=== PATIENT | female | born 1950 | race Caucasian/White ===

== ENCOUNTER 2022-04-12 18:41 | Inpatient (IN) | payer MEDICARE, OTHER ==
[~2022-04-12] VITALS: Ht 172.7 cm; Wt 52.2 kg
[~2022-04-12 18:41] MED LIST: PENI500T PO
--- NOTE | 2022-04-12 20:11 | NUR ---
Patient has been has been medically cleared by Dr Cosme
--- NOTE | 2022-04-12 23:10 | NUR ---
[facility] Clemencia at bedside, psych eval in progress
--- NOTE | 2022-04-13 02:30 | NUR ---
Called [facility]. Report given to OTIS Sales.
[2022-04-13] MEDS ORDERED: ACETAMINOPHEN 325 MG TABLET PO PRN (02:45)
[2022-04-13] MEDS ORDERED: ASPI81TA31 PO (02:56)
[2022-04-13] MEDS ORDERED: [UNRECOGNIZED DRUG - CODE] PO (02:56)
[2022-04-13] MEDS ORDERED: MIDO2.5T PO (02:56)
[2022-04-13] MEDS ORDERED: MAGN240P PO (02:56)
[2022-04-13] MEDS ORDERED: GLUC500T12 PO (02:56)
[2022-04-13] MEDS ORDERED: ZOLP5TAB8 PO (02:56)
[2022-04-13] MEDS ORDERED: TRAM50TA2 PO (02:56)
[2022-04-13] MEDS ORDERED: UBID100C45 PO (02:56)
[2022-04-13] MEDS ORDERED: FAMO40TA7 PO (02:56)
[2022-04-13] MEDS ORDERED: ASCO-375 PO (02:56)
[2022-04-13] MEDS ORDERED: OMEG1CAP55 PO (02:56)
[2022-04-13] MEDS ORDERED: IBUP-1953 PO (02:56)
[2022-04-13] MEDS ORDERED: CHOL200026 PO (02:56)
[2022-04-13] MEDS ORDERED: ZINC220C6 PO (02:56)
--- NOTE | 2022-04-13 03:22 | NUR ---
Pt. admitted to [facility] , under care of Dr. Willams Belongs List completed Vasu RN aware of patient's arrival
--- NOTE | 2022-04-13 04:30 | NUR ---
Admitted at approx 0315 a 72 years old female to [facility] on a 5150 for GD. per hold, patient lives alone in her own home. she initially went to [facility] d/t chronic pain. while there, she was noted with excess anxiety and worrying because of her pain. she also reported that her meds are not working and that she is not sleeping well. Patient then was referred to [facility] for psych eval and admission to [facility]. Her hold will on 04/15/22 at 2325. Upon admission, patient is A/O x 3. she is ambulatory. Patient reflects what is written on the hold. she denied SI/HI/VH/AH. she is able to CFS. patient was given her advisement as well as her booklet for patient's right when in mental health facilities. she is under the care of dr Willams. will continue to monitor.
[2022-04-13 06:05] VITALS: BP 149/49
[2022-04-13 07:30] VITALS: BP 110/57
[2022-04-13] MEDS: ESCITALOPRAM OXALATE 10 MG TABLET PO SCH (10:56)
--- NOTE | 2022-04-13 12:02 | NUR ---
Firearms Report: Hl7 Interface Developer completed and submitted a [employer] firearms report for 5150 grave disability certifications. A copy of report has been placed in patient chart.
[2022-04-13] MEDS: HYDROXYZINE PAMOATE 25 MG CAPSULE PO PRN ×2 (12:32→18:23)
--- NOTE | 2022-04-13 12:56 | NUR ---
Gps/Radiotelegraph Operator- Daughter Deven in to bring clothes and toiletries from home, instructed to bring at least 2 sets of her clothes, kept pillow (1), 1 cervical pillow for neck pain per patient. . Patient noted extremely anxious, fidgety, restless, , kept bending forward touching the floor, per daughter she is extrmely anxious right now. Per patient she is supposed to take oral abx. penicillin VK which was started 04/11/22 from dental work up . Patient requesting her ultram 50 mg po, , tylenol 650 mg offered instead for, now, Dr Rascon was called and informed the need to reconcile meds.
[2022-04-13] MEDS ORDERED: busPIRone 10 MG TABLET PO SCH (13:00)
--- NOTE | 2022-04-13 14:16 | NUR ---
Gps/Financial Services Specialist- Daughter Adran took some of patient 's belongings to home, was instructed to just leave 2 sets of clothes and basic needs
--- NOTE | 2022-04-13 15:38 | NUR ---
Gps/Seat Builder-Daughter Quinn ([phone] ) called, wants to know progress on patient's medications (pain medications and oral abx.) She also requesting the Psychiatrist as well as Medical Doctor to give her a call , Patient was able to take a nap, calm down after vistaril 25 mg po 1 cap.administered after lunch .Informed daughter Medical Doctor was already informed twice about reconcilling medications
--- NOTE | 2022-04-13 15:39 | NUR ---
LASHAUN Family Contact: LASHAUN spoke with pt's daughter, Quinn ([phone]) in person during visitation. Quinn expressed that she would like the psychiatrist to make medication changes for the pt. LASHAUN expressed that this story writer will relay the message to Dr. Willams and ask him to call her. Quinn stated pt needs stronger medication for her tooth pain and to decrease her anxiety. LASHAUN stated she will inform Dr. Willams to contact her. This story writer informed Dr. Willams to contact Quinn regarding important medication questions.
[2022-04-13 16:00] VITALS: BP 119/71
--- NOTE | 2022-04-13 16:29 | NUR ---
LASHAUN Initial Discharge Note: Pt currently resides at home alone located at [address] [place] [address] ([phone]). Per pt's daughter/DPOA, Quinn ([phone]), pt cannot return home to live on her own in this condition. Quinn agreed for pt to potentially continue care at a alf facility. LASHAUN will continue to work with pt, Quinn, and to ensure a safe and proper discharge plan.
--- NOTE | 2022-04-13 16:33 | NUR ---
Gps/Fraud Investigator- Dr Rascon (Medical Doctor) was called again was reminded to reconcile medications, was reviewed home meds with Dr Rascon bridgette. pain meds. -ultram 50 mg po q 6 hours po as needed ,as well as penicillin v 500 mg po q 6 hours which was started on , and will stop 04/17/22 . Offered to enter order for him, but he claimed he will enter the order now.
[2022-04-13] MEDS ORDERED: MIDODRINE HCL 2.5 MG TABLET PO PRN (16:45)
[2022-04-13] MEDS ORDERED: IBUPROFEN 400 MG TABLET PO PRN (16:45)
[2022-04-13] MEDS: TRAMADOL HCL 50 MG TABLET PO PRN (18:00)
--- NOTE | 2022-04-13 18:51 | NUR ---
Gps/Jig And Fixture Maker- Patient requesting to use own eye gtts which she uses ( restasis 1 gtt. each eye as needed, and artificial tears which was sent to Pharmacy this am.) Will informed Medical Doctor if ok to use .Per her friend who came to visit this pm, if patient is uncomfortable she will get anxious , and almost to panic mood.
[2022-04-13] MEDS ORDERED: GABA-532 PO (19:07)
[2022-04-13] MEDS ORDERED: GABA300C PO (19:07)
[2022-04-13] MEDS ORDERED: DEXT15DR6 EACHEYE (19:12)
[2022-04-13 20:03] VITALS: BP 141/71
--- NOTE | 2022-04-13 20:30 | NUR ---
RECEIVED PATIENT IN HER ROOM IN BED. SHE IS NOTED SLEEPING BUT EASILY AROUSABLE. SHE IS A/O X 3 ABLE TO VERBALIZED HER FEELINGS. SHE IS NOTED WITH LOW MOOD, SHE IS WITHDRAWN AND ISOLATIVE. SHE DENIED SI/HI//AH. SHE IS FIXED ON HER MEDICATIONS. SHE DENIED PAIN OR DISCOMFORT AT THIS TIME. GABAPETIN, PENCILLIN AND ARTIFICIAL EYE DROPS WERE RECONCILED PER DR Madi JOYA. WILL ADMINISTER ORDERED. HER V/S ARE STABLE. SHE IS REASSURED FOR HER SAFETY. SAFETY AND FALL PRECAUTIONS ARE IN PLACE. SHE WAS GIVEN PO FLUIDS AND SNACKS. ALL HER NEEDS ARE MET. WILL CONTINUE TO MONITOR.
[2022-04-13] MEDS: GABAPENTIN 300 MG CAPSULE PO SCH (21:25)
[2022-04-13] MEDS: PENICILLIN V POTASSIUM 500 MG TABLET PO SCH (23:40)
--- NOTE | 2022-04-13 23:46 | NUR ---
GIVEN PENICILLIN VK 500MG PO Q6HRS FOR TOOTH EXTRACTION PROPHYLACTIC. THIS IS AND ORDER THAT STARTED AT [facility] ON 04/11/22 AND TO BE CONTINUE TILL 04/17/[address] Ricardo JOYA. WILL CONTINUE TO MONITOR.
[2022-04-14] MEDS: PENICILLIN V POTASSIUM 500 MG TABLET PO SCH ×3 (06:01→18:08)
[2022-04-14 07:30] VITALS: BP 101/57
[2022-04-14] MEDS ORDERED: THEOPHYLLINE ANHYDROUS 200 MG PO SCH (09:00)
[2022-04-14] MEDS: FAMOTIDINE 20 MG TABLET PO SCH (09:00)
[2022-04-14] MEDS ORDERED: Medication Not On Formulary EA (Cholecalciferol (Vitamin D3) (Vitamin D3) 1 TAB) PO SCH (09:00)
[2022-04-14] MEDS: GABAPENTIN 100 MG CAPSULE PO SCH ×3 (09:25→18:07)
[2022-04-14] MEDS: ESCITALOPRAM OXALATE 10 MG TABLET PO SCH (09:25)
[2022-04-14] MEDS: ASPIRIN 81 MG TAB.CHEW PO SCH (09:25)
[2022-04-14] MEDS: CHOLECALCIFEROL 1,000 UNIT TABLET PO SCH (09:28)
[2022-04-14] MEDS: ASCORBIC ACID 500 MG TABLET PO SCH (09:28)
--- NOTE | 2022-04-14 09:33 | NUR ---
SW Family Contact: SW returned pt's daughter, Quinn's ([phone]) call and discussed pt's treatment, Andjas concerns and pts discharge plan. Quinn expressed her concerns about pt's food consumption. Quinn asked for this principal technical writer to speak to the medical doctor regarding pain medication questions. Quinn stated she needs this principal technical writer's help to inform the kitchen about the urgency of pt's allergy restrictions. This SW assured Quinn that pt's dietary restrictions are being followed. This SW informed pt's medical doctor, Dr. Driver to contact Quinn and Dr. Driver confirmed. This principal technical writer contacted the manager software, Iraida, Director of Behavior Health, Dr. Dave, and the Tuck Pointer, Ria. Quinn's concerns have been addressed and immediate action by Iraida and her team was taken. This principal technical writer informed Quinn and she is aware and thankful for the teams help.
[2022-04-14] MEDS: ENSURE ENLIVE (VAN) 240 ML LIQUID PO SCH ×3 (10:30→17:00)
--- NOTE | 2022-04-14 11:04 | NUR ---
Gps/Exec. Creative Director- Informed daughter Andja and friends, Knitter Wire Mesh consult was already ordered , waiting to see patient .
--- NOTE | 2022-04-14 11:59 | NUR ---
Gps/Valve And Regulator Repairer- Verbalized feelings of still anxious, claimed not feeling well ,, remains anxious, was medicated with vistaril 25 mg 1 cap. po, claimed didnt touch her
[2022-04-14] MEDS: TRAMADOL HCL 50 MG TABLET PO PRN (15:14)
[2022-04-14] MEDS: BIOTENE DRY MOUTH MOISTURIZING PO PRN ×2 (15:15→20:59)
--- NOTE | 2022-04-14 15:45 | NUR ---
Gps/Denture Technician- Noted patient resting quietly in bed, wants her lights out . Offered pain med. verbalized adequate relief after. Noted patient had been in and out of the activity room, no interactions noted . Monitored needs, daughter Andja, and friends called couple of time to check patient' progress. Patient was able to talked to her family and friends.
[2022-04-14 16:00] VITALS: BP 115/66
--- NOTE | 2022-04-14 16:10 | NUR ---
LASHAUN Family Contact: LASHAUN contacted pt's daughter, Quinn ([phone]) and informed her that this sheet writer will return to office on Sunday, and to contact the nursing station for any questions until then. Boojonna was grateful for the information.
[2022-04-14 19:38] VITALS: BP 106/53
[2022-04-14] MEDS: GABAPENTIN 300 MG CAPSULE PO SCH (20:36)
[2022-04-14] MEDS: POLYVINYL ALCOHOL OPHT DROPS 15 ML BOTTLE EACHEYE PRN (21:00)
[2022-04-14] MEDS: diphenhydrAMINE 50 MG CAPSULE PO PRN (21:42)
[2022-04-15] MEDS: PENICILLIN V POTASSIUM 500 MG TABLET PO SCH ×4 (00:09→17:00)
--- NOTE | 2022-04-15 05:11 | NUR ---
GPS NOTES: Patient is A&0x3, ambulatory w/ steady gait. C/o neck pain, ice pack applied w/ effectivity. Patient is with anxious behavior and needs constant re-assurance. She is compliant with medications. PRN Benadryl given. Patient slept well during shift. No distress noted. Safety strategies in placed.
[2022-04-15 07:41] VITALS: BP 96/49
[2022-04-15] MEDS: ESCITALOPRAM OXALATE 10 MG TABLET PO SCH (08:52)
[2022-04-15] MEDS: ASCORBIC ACID 500 MG TABLET PO SCH (08:52)
[2022-04-15] MEDS: CHOLECALCIFEROL 1,000 UNIT TABLET PO SCH (08:52)
[2022-04-15] MEDS: GABAPENTIN 100 MG CAPSULE PO SCH ×3 (08:52→16:08)
[2022-04-15] MEDS: ASPIRIN 81 MG TAB.CHEW PO SCH (08:52)
[2022-04-15] MEDS: FAMOTIDINE 20 MG TABLET PO SCH (09:00)
[2022-04-15] MEDS: ENSURE ENLIVE (VAN) 240 ML LIQUID PO SCH ×3 (09:00→16:08)
--- NOTE | 2022-04-15 09:37 | NUR ---
Pt received lying in bed resting comfortably. Compliant with most PO medications. Pt is anxious at times and easily irritable. Complaining about food specifics. Prune Washer called kitchen to accommodate pt's requests. Denies SI. No aggressive or combative behavior noted.
[2022-04-15] MEDS: TRAMADOL HCL 50 MG TABLET PO PRN (13:25)
[2022-04-15] MEDS: LORAZEPAM 1 MG TABLET PO PRN (13:25)
[2022-04-15 16:15] VITALS: BP 123/69
[2022-04-15] MEDS: MAG HYDROX/AL HYDROX/SIMETH 30 ML LIQUID UDC PO PRN (16:21)
[2022-04-15 19:52] VITALS: BP 118/66
[2022-04-15] MEDS: GABAPENTIN 300 MG CAPSULE PO SCH (21:11)
[2022-04-15] MEDS: diphenhydrAMINE 50 MG CAPSULE PO PRN (21:11)
[2022-04-15] MEDS: BIOTENE DRY MOUTH MOISTURIZING PO PRN (21:15)
[2022-04-16] MEDS: PENICILLIN V POTASSIUM 500 MG TABLET PO SCH ×5 (00:05→23:46)
[2022-04-16] MEDS: LORAZEPAM 1 MG TABLET PO PRN ×2 (00:06→11:53)
[2022-04-16] MEDS: FAMOTIDINE 20 MG TABLET PO SCH (06:39)
[2022-04-16 07:40] VITALS: BP 112/60
[2022-04-16] MEDS: ENSURE ENLIVE (VAN) 240 ML LIQUID PO SCH ×3 (09:00→17:00)
[2022-04-16] MEDS: ASPIRIN 81 MG TAB.CHEW PO SCH (09:18)
[2022-04-16] MEDS: ESCITALOPRAM OXALATE 10 MG TABLET PO SCH (09:18)
[2022-04-16] MEDS: GABAPENTIN 100 MG CAPSULE PO SCH ×3 (09:19→17:14)
[2022-04-16] MEDS: ASCORBIC ACID 500 MG TABLET PO SCH (09:19)
[2022-04-16] MEDS: CHOLECALCIFEROL 1,000 UNIT TABLET PO SCH (09:19)
[2022-04-16] MEDS: MAG HYDROX/AL HYDROX/SIMETH 30 ML LIQUID UDC PO PRN (11:53)
--- NOTE | 2022-04-16 14:20 | NUR ---
Patient has been on and off complaining about things , then complimenting. Patient refuses to continue on the antibiotics for her tooth because " I have been taking them for too many days". The patient wants to take a break from her afternoon medications d/t having an upset stomach. The patient has been anxious most of the day so far. This lead technical writer was able to engage in meaningful conversation and educated the patient on different coping styles to try. Safety Stratiges remain in place. No acute pain or distress noted at this time.
[2022-04-16 16:30] VITALS: BP 100/48
[2022-04-16] MEDS: TRAMADOL HCL 50 MG TABLET PO PRN ×2 (17:18→18:58)
[2022-04-16 19:46] VITALS: BP 119/67
[2022-04-16] MEDS: GABAPENTIN 300 MG CAPSULE PO SCH (20:29)
[2022-04-16] MEDS: POLYVINYL ALCOHOL OPHT DROPS 15 ML BOTTLE EACHEYE PRN (20:42)
[2022-04-16] MEDS: BIOTENE DRY MOUTH MOISTURIZING PO PRN (20:42)
[2022-04-16] MEDS: diphenhydrAMINE 50 MG CAPSULE PO PRN (20:49)
[2022-04-17] MEDS: PENICILLIN V POTASSIUM 500 MG TABLET PO SCH ×3 (06:08→17:23)
[2022-04-17 07:37] VITALS: BP 98/55
[2022-04-17] MEDS ORDERED: GABAPENTIN 100 MG CAPSULE PO SCH (08:30)
[2022-04-17] MEDS: ASPIRIN 81 MG TAB.CHEW PO SCH (08:41)
[2022-04-17] MEDS: ASCORBIC ACID 500 MG TABLET PO SCH (08:42)
[2022-04-17] MEDS: FAMOTIDINE 20 MG TABLET PO SCH (08:42)
[2022-04-17] MEDS: CHOLECALCIFEROL 1,000 UNIT TABLET PO SCH (08:42)
[2022-04-17] MEDS: ESCITALOPRAM OXALATE 10 MG TABLET PO SCH (08:43)
[2022-04-17] MEDS: ENSURE ENLIVE (VAN) 240 ML LIQUID PO SCH ×3 (09:00→17:01)
[2022-04-17] MEDS: GABAPENTIN 300 MG CAPSULE PO SCH ×3 (09:00→20:41)
[2022-04-17] MEDS: LORAZEPAM 1 MG TABLET PO PRN (11:02)
--- NOTE | 2022-04-17 11:02 | NUR ---
Patient C/O feelings of still anxious, claimed not feeling well remains anxious, Ativan 1 mg given as prn ordered. patient remains isolative withdrawn no interaction with other peers .refused to attend i group activity.
[2022-04-17 16:22] VITALS: BP 95/54
[2022-04-17] MEDS: TRAMADOL HCL 50 MG TABLET PO PRN (17:00)
[2022-04-17 19:28] VITALS: BP 102/43
[2022-04-17] MEDS: MELATONIN 3 MG TABLET PO SCH (20:41)
[2022-04-17] MEDS: MAGNESIUM HYDROXIDE 30 ML LIQUID UDC PO PRN (20:41)
[2022-04-17] MEDS: POLYVINYL ALCOHOL OPHT DROPS 15 ML BOTTLE EACHEYE PRN (20:42)
[2022-04-17] MEDS: BIOTENE DRY MOUTH MOISTURIZING PO PRN (20:42)
[2022-04-17] MEDS ORDERED: MELATONIN 3 MG TABLET PO SCH (21:00)
[2022-04-18] MEDS: LORAZEPAM 1 MG TABLET PO PRN ×2 (03:26→17:58)
--- NOTE | 2022-04-18 04:08 | NUR ---
Patient staying mostly in her room, comes out to engage interaction with the staff to make simple requests. Verbalizing more feeling with this script writer about her anxiety and how she is battling with them. Acknowledging her feelings at this time. She remains compliant with her treatment plans. MOM given d/t no BM. Ativan given for anxiety. Patient sleeping intermittently during shift. Close monitoring observed.
[2022-04-18 07:30] VITALS: BP 105/52
[2022-04-18] MEDS: ASCORBIC ACID 500 MG TABLET PO SCH (08:32)
[2022-04-18] MEDS: ESCITALOPRAM OXALATE 10 MG TABLET PO SCH (08:32)
[2022-04-18] MEDS: ASPIRIN 81 MG TAB.CHEW PO SCH (08:32)
[2022-04-18] MEDS: FAMOTIDINE 20 MG TABLET PO SCH (08:32)
[2022-04-18] MEDS: GABAPENTIN 300 MG CAPSULE PO SCH ×3 (08:32→20:43)
[2022-04-18] MEDS: CHOLECALCIFEROL 1,000 UNIT TABLET PO SCH (08:32)
[2022-04-18] MEDS: ENSURE ENLIVE (VAN) 240 ML LIQUID PO SCH ×3 (08:33→16:26)
--- NOTE | 2022-04-18 10:01 | NUR ---
LASHAUN Family Contact: LASHAUN contacted pt's daughter, Quinn ([phone]) and discussed pt's discharge plan. Quinn expressed she is agreeable to a assisted facility recommendation for pt's continuation of care. LASHAUN stated she will follow-up with the MD for referrals and discuss with Quinn prior to discharge. Quinn also expressed medication adjustments she would like to speak to Dr. Antonio about regarding senior living care. LASHAUN informed Dr. Willams and will continue to follow-up with Quinn.
--- NOTE | 2022-04-18 12:16 | NUR ---
LASHAUN Family Contact: SW spoke with pt's brother in person during visitation and the pt regarding pt's treatment and discharge plan. Family did not have any questions or concerns at this time.
--- NOTE | 2022-04-18 14:29 | NUR ---
patient is alert ambulate in her room and hallway ,still feels Nervous and anxious time to time, patient refused to take Ativan she state that' i will try no depend on medication for anxiety ,i will try to getting better by my self. patient is more talkative and brighter compliant with all schedule medication .refused to attend in group activity 1 to 1 activity provided by REC.therapist.encouraged patient to verbalizer her feeling will continue close monitoring.
[2022-04-18 16:00] VITALS: BP 112/50
[2022-04-18] MEDS: TRAMADOL HCL 50 MG TABLET PO PRN (16:59)
[2022-04-18 19:38] VITALS: BP 116/57
[2022-04-18] MEDS: diphenhydrAMINE 50 MG CAPSULE PO PRN (20:42)
[2022-04-18] MEDS: MELATONIN 3 MG TABLET PO SCH (20:43)
[2022-04-19 07:30] VITALS: BP 123/67
[2022-04-19] MEDS: ASPIRIN 81 MG TAB.CHEW PO SCH (08:31)
[2022-04-19] MEDS: CHOLECALCIFEROL 1,000 UNIT TABLET PO SCH (08:31)
[2022-04-19] MEDS: GABAPENTIN 300 MG CAPSULE PO SCH ×3 (08:31→20:21)
[2022-04-19] MEDS: FAMOTIDINE 20 MG TABLET PO SCH (08:32)
[2022-04-19] MEDS: ASCORBIC ACID 500 MG TABLET PO SCH (08:32)
[2022-04-19] MEDS: ESCITALOPRAM OXALATE 10 MG TABLET PO SCH (08:32)
[2022-04-19] MEDS: ENSURE ENLIVE (VAN) 240 ML LIQUID PO SCH ×2 (08:57→12:15)
[2022-04-19] MEDS: LORAZEPAM 1 MG TABLET PO PRN (10:18)
--- NOTE | 2022-04-19 12:18 | NUR ---
LASHAUN Family contact: LASHAUN spoke with pt's brother, son, and pt in person during visitation. Pt stated her concerns with her breakfast and lunch meals. pt stated her anxiety does feel improved. Pt's family did not have any questions or concerns for this health underwriter at this time. Pt's concerns for her meals were addressed.
[2022-04-19 16:00] VITALS: BP 121/57
[2022-04-19] MEDS: TRAMADOL HCL 50 MG TABLET PO PRN (16:09)
[2022-04-19] MEDS: MAGNESIUM HYDROXIDE 30 ML LIQUID UDC PO PRN (19:10)
[2022-04-19 19:46] VITALS: BP 144/72
[2022-04-19] MEDS: MELATONIN 3 MG TABLET PO SCH (20:21)
[2022-04-19] MEDS: BIOTENE DRY MOUTH MOISTURIZING PO PRN (20:22)
[2022-04-19] MEDS: diphenhydrAMINE 50 MG CAPSULE PO PRN (20:30)
[2022-04-20] MEDS: LORAZEPAM 1 MG TABLET PO PRN ×2 (02:45→21:03)
--- NOTE | 2022-04-20 03:17 | NUR ---
Received in her room, patient calm and cooperative with care and medication, patient slept for few hours then awake. Patient has episodes anxiety requested something for it, given ativan 1mg po, cont to monitor.
[2022-04-20 06:58] LABS: HEMATOCRIT 38.9 % (31.2-41.9); MEAN CORPUSCULAR HEMOGLOBIN 31.2 uug (24.7-32.8); MEAN CORPUSCULAR VOLUME 90.9 fL (75.5-95.3); PLATELET COUNT (AUTO) 236 K/uL (179-408)
[2022-04-20 07:24] LABS: THYROID STIMULATING HORMONE 0.965 mIU/mL (0.358-3.740)
[2022-04-20 07:30] VITALS: BP 116/70
[2022-04-20 08:24] LABS: BILIRUBIN,TOTAL 0.3 mg/dL (0.2-1.0); CREATININE 0.9 mg/dL (0.6-1.3); MAGNESIUM 2.2 mg/dL (1.8-2.4); PHOSPHOROUS 3.6 mg/dL (2.5-4.9); POTASSIUM 4.1 mmol/L (3.5-5.1); TOTAL PROTEIN, SERUM 5.8 g/dL (6.4-8.2)
[2022-04-20] MEDS: ASPIRIN 81 MG TAB.CHEW PO SCH (09:05)
[2022-04-20] MEDS: CHOLECALCIFEROL 1,000 UNIT TABLET PO SCH (09:06)
[2022-04-20] MEDS: ASCORBIC ACID 500 MG TABLET PO SCH (09:06)
[2022-04-20] MEDS: GABAPENTIN 300 MG CAPSULE PO SCH ×3 (09:07→21:05)
[2022-04-20] MEDS: FAMOTIDINE 20 MG TABLET PO SCH (09:07)
[2022-04-20] MEDS: ESCITALOPRAM OXALATE 10 MG TABLET PO SCH (09:11)
[2022-04-20] MEDS: ENSURE ENLIVE (VAN) 240 ML LIQUID PO SCH (09:12)
--- NOTE | 2022-04-20 12:10 | NUR ---
LASHAUN Family Contact: SW spoke with pt's brother and pt in person. Pt verbalized she needs protein for lunch as she is not able to eat her vegetables due to her TMJ pain. SW informed Dietary and pt was immediately brought her requested meal.
[2022-04-20] MEDS: TRAMADOL HCL 50 MG TABLET PO PRN ×2 (14:24→23:16)
--- NOTE | 2022-04-20 14:35 | NUR ---
patient is alert ambulate in her room and hallway , patient compliant taken all schedule medication . attended activities 1 to 1 activity provided by REC.therapist. Medicated for C/O of neck pain as order with Ultram 50 mg will continue to monitor closely.
[2022-04-20 16:00] VITALS: BP 119/68
[2022-04-20 20:04] VITALS: BP 102/66
[2022-04-20] MEDS: MELATONIN 3 MG TABLET PO SCH (21:04)
[2022-04-20] MEDS: ZOLPIDEM 5 MG TABLET PO PRN (23:16)
--- NOTE | 2022-04-21 01:50 | NUR ---
Received patient in her room. Anxious and worried about her medications. This health underwriter talked with her about stress coping techniques ,and meditation, different breathing styles to help calm the mind. The patient was open to these things and returned demonstration. Reassurance and active listening done by this health underwriter. The patient ruminates on everything that has gone wrong in her past . She fixates on negativity, but can be redirected and distracted for short periods of time. The patient took a shower and ate snack. PRN medications were provided to help patient sleep per patient request. Safety Stratiges are in place. Continuing to monitor patient for anxiety and insomnia. No SI at this time.
[2022-04-21 07:30] VITALS: BP 125/68
[2022-04-21] MEDS: FAMOTIDINE 20 MG TABLET PO SCH (08:45)
[2022-04-21] MEDS: CHOLECALCIFEROL 1,000 UNIT TABLET PO SCH (08:45)
[2022-04-21] MEDS: ASPIRIN 81 MG TAB.CHEW PO SCH (08:46)
[2022-04-21] MEDS: ASCORBIC ACID 500 MG TABLET PO SCH (08:46)
[2022-04-21] MEDS: ESCITALOPRAM OXALATE 10 MG TABLET PO SCH (08:46)
[2022-04-21] MEDS: GABAPENTIN 300 MG CAPSULE PO SCH ×3 (08:46→21:59)
[2022-04-21] MEDS: ENSURE ENLIVE (VAN) 240 ML LIQUID PO SCH (08:46)
[2022-04-21] MEDS: LORAZEPAM 1 MG TABLET PO PRN (13:23)
[2022-04-21] MEDS: TRAMADOL HCL 50 MG TABLET PO PRN ×2 (13:24→14:58)
--- NOTE | 2022-04-21 13:26 | NUR ---
Patient is given Ativan 1 mg for anxiety, restlessness. Patient is given Tramadol 50 mg for jaw, neck, and head pain rated 9 on the scale of 1 to 10, will be monitored for effectiveness.
--- NOTE | 2022-04-21 13:52 | NUR ---
Received patient sleeping in her room. Patient is anxious and restless at times, isolative, cooperative with nursing care, compliant with medications. Patient is A/O X 3 to person, place. Emotional support provided. Fall and safety precautions implemented.
[2022-04-21 16:00] VITALS: BP 129/67
--- NOTE | 2022-04-21 20:30 | NUR ---
Received patient in her room in bed. She was noted awake A/O x 3 able to verbalized her feeling. Patient noted isolative and withdrawn. She is less anxious. She is fixed on her medications and worry about her night time sleep. Patient was educated about her medications and PRNs. she was reassured. she was also reassured for her safety. safety and fall precautions are in place. her V/S are stable. she was given PO fluids and snacks. will continue to monitor.
[2022-04-21] MEDS: MAGNESIUM HYDROXIDE 30 ML LIQUID UDC PO PRN (20:57)
[2022-04-21 21:31] VITALS: BP 127/68
[2022-04-21] MEDS: MELATONIN 3 MG TABLET PO SCH (21:59)
[2022-04-21] MEDS: BIOTENE DRY MOUTH MOISTURIZING PO PRN (22:40)
[2022-04-22] MEDS: ZOLPIDEM 5 MG TABLET PO PRN (01:32)
[2022-04-22 07:35] VITALS: BP 109/61
[2022-04-22] MEDS: FAMOTIDINE 20 MG TABLET PO SCH (08:18)
[2022-04-22] MEDS: ASPIRIN 81 MG TAB.CHEW PO SCH (08:18)
[2022-04-22] MEDS: ESCITALOPRAM OXALATE 10 MG TABLET PO SCH (08:18)
[2022-04-22] MEDS: CHOLECALCIFEROL 1,000 UNIT TABLET PO SCH (08:18)
[2022-04-22] MEDS: ENSURE ENLIVE (VAN) 240 ML LIQUID PO SCH (08:19)
[2022-04-22] MEDS: GABAPENTIN 300 MG CAPSULE PO SCH ×3 (08:19→21:26)
[2022-04-22] MEDS: ASCORBIC ACID 500 MG TABLET PO SCH (08:19)
[2022-04-22] MEDS: LORAZEPAM 1 MG TABLET PO PRN (09:42)
[2022-04-22] MEDS: TRAMADOL HCL 50 MG TABLET PO PRN (14:47)
--- NOTE | 2022-04-22 15:26 | NUR ---
Received patient sleeping in her room. Patient is A/O X 3 to person, place. Patient is isolative, withdrawn, depressed, cooperative, compliant with medications. Patient is given Ativan 1 mg at 09:42 for anxiety, effective. Patient is given Tramadol 50 mg at 14:47 for jaw, neck, head pain, effective. Requires minimal assistance with ADL. Emotional support provided. Fall and safety precautions implemented.
[2022-04-22 16:22] VITALS: BP 134/62
--- NOTE | 2022-04-22 20:30 | NUR ---
Received patient in her room in bed. She was noted awake A/O x 3 able to verbalized her feeling. Patient noted isolative and withdrawn. She is anxious and fixed on her medications and worry about her night time sleep, she stated, "I am worry about my sleep. I need to sleep tonight, I got to sleep tonigh".Patient was educated about her medications and PRNs. she was reassured and redirected. she was also reassured for her safety. safety and fall precautions are in place. her V/S are stable. she was given PO fluids and snacks. will continue to monitor.
[2022-04-22 20:57] VITALS: BP 96/55
[2022-04-22] MEDS: MELATONIN 3 MG TABLET PO SCH (21:26)
[2022-04-23] MEDS: ZOLPIDEM 5 MG TABLET PO PRN (00:27)
[2022-04-23] MEDS: LORAZEPAM 1 MG TABLET PO PRN ×2 (01:32→14:21)
[2022-04-23 07:50] VITALS: BP 94/60
[2022-04-23] MEDS: FAMOTIDINE 20 MG TABLET PO SCH (08:29)
[2022-04-23] MEDS: ASPIRIN 81 MG TAB.CHEW PO SCH (08:30)
[2022-04-23] MEDS: CHOLECALCIFEROL 1,000 UNIT TABLET PO SCH (08:30)
[2022-04-23] MEDS: ESCITALOPRAM OXALATE 10 MG TABLET PO SCH (08:30)
[2022-04-23] MEDS: GABAPENTIN 300 MG CAPSULE PO SCH ×4 (08:30→21:51)
[2022-04-23] MEDS: ASCORBIC ACID 500 MG TABLET PO SCH (08:30)
[2022-04-23] MEDS: ENSURE ENLIVE (VAN) 240 ML LIQUID PO SCH (08:31)
[2022-04-23] MEDS: MAG HYDROX/AL HYDROX/SIMETH 30 ML LIQUID UDC PO PRN (10:19)
--- NOTE | 2022-04-23 14:28 | NUR ---
Received patient sleeping in her room. Patient is A/O X 3 to person, place, situation. Patient is depressed, isolative, confinding in her room in the darkness with lights off, participates in group meditation only, Maalox 30 ml is given at 10:19 for upset stomach, effective. Ativan 1 mg is given at 14:21 for anxiety, will be monitored for effectiveness. Patient is ambulatory, self care. Active listening provided. Fall and safety precautions implemented.
[2022-04-23 16:14] VITALS: BP 116/58
[2022-04-23] MEDS: TRAMADOL HCL 50 MG TABLET PO PRN (16:41)
--- NOTE | 2022-04-23 20:30 | NUR ---
Received patient in the shower. She was helped out of the shower bed sheet were changed. She is noted A/O x 3 calm and pleasant. She is able to verbalized her feelings. Patient noted less anxious less isolative than yesterday but continue fixed on medications and side effect. she stated, "The doctor gave me Benadryl at night for sleep but what are the side effect? I don't want to take too many medication because i get very sick from the side effects". patient was informed of Benadryl side effect and will take it later. She is reassured for her safety safety and fall precautions are in place. V/S stable. she was given PO fluids and snacks. Will continue to monitor.
[2022-04-23 21:41] VITALS: BP 123/67
[2022-04-23] MEDS: MELATONIN 3 MG TABLET PO SCH (21:51)
[2022-04-23] MEDS: diphenhydrAMINE 50 MG CAPSULE PO SCH (21:51)
[2022-04-24] MEDS: BIOTENE DRY MOUTH MOISTURIZING PO PRN (01:29)
[2022-04-24] MEDS: ZOLPIDEM 5 MG TABLET PO PRN (02:23)
[2022-04-24 07:42] VITALS: BP 125/68
[2022-04-24] MEDS: ASPIRIN 81 MG TAB.CHEW PO SCH (08:52)
[2022-04-24] MEDS: FAMOTIDINE 20 MG TABLET PO SCH (08:52)
[2022-04-24] MEDS: ESCITALOPRAM OXALATE 10 MG TABLET PO SCH (08:53)
[2022-04-24] MEDS: GABAPENTIN 300 MG CAPSULE PO SCH ×4 (08:53→20:44)
[2022-04-24] MEDS: ASCORBIC ACID 500 MG TABLET PO SCH (08:53)
[2022-04-24] MEDS: CHOLECALCIFEROL 1,000 UNIT TABLET PO SCH (08:54)
[2022-04-24] MEDS: ENSURE ENLIVE (VAN) 240 ML LIQUID PO SCH (09:00)
[2022-04-24] MEDS: LORAZEPAM 1 MG TABLET PO PRN ×2 (10:22→20:44)
--- NOTE | 2022-04-24 14:42 | NUR ---
Received patient lying in bed resting comfortably. Compliant with all PO medications. Pt is anxious at times and easily irritable asked Ativan for anxiety , patient still feels hopeless and helpless Denies SI. No aggressive or combative behavior noted.visited by her family .
[2022-04-24 15:54] VITALS: BP 89/52
[2022-04-24] MEDS: TRAMADOL HCL 50 MG TABLET PO PRN (16:26)
[2022-04-24] MEDS: diphenhydrAMINE 50 MG CAPSULE PO SCH (20:44)
[2022-04-24] MEDS: MELATONIN 3 MG TABLET PO SCH (20:45)
[2022-04-24 20:51] VITALS: BP 105/75
--- NOTE | 2022-04-25 01:51 | NUR ---
Patient was walking up and down the hallway at the start of the shift. Depressed and in a hopeless mood. This pattern chart writer engaged in a long conversation with the patient. The patient has poor coping skills and continues to ruminate on the past. Many attempts to educate the patient with coping and stress relieving techniques and breathing exercises. The patient is open to trying but verbalizes and fixates and all that is wrong with her or bad in the world. Multiple times this patient has asked for this writers phone number stating " I need you in my life. You need to keep in touch with me when I am discharged. You are the only one around here that can help me. " The patient acts needy and dependant on this pattern chart writer. Despite being told that staff giving their phone number out to patients is inappropriate, the patient continues to ask. Safety stratiges are in place and ongoing monitoring of the patients depression.
[2022-04-25 07:38] VITALS: BP 114/60
[2022-04-25] MEDS ORDERED: ZOLPIDEM 5 MG TABLET PO PRN (08:30)
[2022-04-25] MEDS: GABAPENTIN 300 MG CAPSULE PO SCH ×4 (08:37→20:25)
[2022-04-25] MEDS: ASCORBIC ACID 500 MG TABLET PO SCH (08:37)
[2022-04-25] MEDS: FAMOTIDINE 20 MG TABLET PO SCH (08:37)
[2022-04-25] MEDS: CHOLECALCIFEROL 1,000 UNIT TABLET PO SCH (08:37)
[2022-04-25] MEDS: ESCITALOPRAM OXALATE 10 MG TABLET PO SCH (08:37)
[2022-04-25] MEDS: ASPIRIN 81 MG TAB.CHEW PO SCH (08:37)
[2022-04-25] MEDS: ENSURE ENLIVE (VAN) 240 ML LIQUID PO SCH (08:39)
[2022-04-25] MEDS: LORAZEPAM 1 MG TABLET PO PRN ×2 (10:49→22:33)
--- NOTE | 2022-04-25 11:00 | NUR ---
LASHAUN Family Contact: LASHAUN spoke with pt's daughter, Quinn ([phone]) and stated that she would like Dr. Willams's recommendation for local snf placement. Quinn also stated she would like her mother to be referred for PT and OT fro insurance to cover. LASHAUN stated she will relay the message to the MD. Boojonna stated she is very grateful for the help.
[2022-04-25] MEDS: TRAMADOL HCL 50 MG TABLET PO PRN (15:02)
[2022-04-25 15:09] VITALS: BP 101/63
[2022-04-25 19:52] VITALS: BP 95/65
[2022-04-25] MEDS: diphenhydrAMINE 50 MG CAPSULE PO SCH (20:25)
[2022-04-25] MEDS: MELATONIN 3 MG TABLET PO SCH (20:25)
[2022-04-25] MEDS: MAGNESIUM HYDROXIDE 30 ML LIQUID UDC PO PRN (21:01)
[2022-04-26 07:30] VITALS: BP 114/60
[2022-04-26] MEDS: ESCITALOPRAM OXALATE 10 MG TABLET PO SCH (08:51)
[2022-04-26] MEDS: FAMOTIDINE 20 MG TABLET PO SCH (08:51)
[2022-04-26] MEDS: ASPIRIN 81 MG TAB.CHEW PO SCH (08:51)
[2022-04-26] MEDS: CHOLECALCIFEROL 1,000 UNIT TABLET PO SCH (08:51)
[2022-04-26] MEDS: ASCORBIC ACID 500 MG TABLET PO SCH (08:51)
[2022-04-26] MEDS: GABAPENTIN 300 MG CAPSULE PO SCH ×4 (08:51→21:12)
[2022-04-26] MEDS: ENSURE ENLIVE (VAN) 240 ML LIQUID PO SCH (08:52)
--- NOTE | 2022-04-26 10:14 | NUR ---
LASHAUN Family Contact/DPOA: LASHAUN spoke with pt's daughter, Quinn ([phone]) and discussed pt's acceptance to [facility] upon discharge. LASHAUN provided details for the recommended snf by the psychiatrist per Quinn's request. Quinn stated to this business writer that pt may discharge home under the pt's brothers care or to a jail facility. The decision remains in process per Joel. LASHAUN stated this business writer will inform Dr. Willams and discuss a final plan once a discharge date is set. Quinn is aware and agreeable.
[2022-04-26 16:00] VITALS: BP 114/59
[2022-04-26] MEDS: TRAMADOL HCL 50 MG TABLET PO PRN (16:03)
--- NOTE | 2022-04-26 16:19 | NUR ---
LASHAUN Family Contact/DPOA: LASHAUN spoke with pt's daughter, Quinn ([phone]) and stated that pt's anticipated discharge date is Sunday or Sunday per Dr. Willams. LASHAUN stated to follow-up with this data analyst report writer tomorrow or Sunday to confirm a safe plan for the pt prior to discharge next week. Quinn is aware and agreeable.
--- NOTE | 2022-04-26 17:35 | NUR ---
Received patient sleeping in her room. Patient is isolative, cooperative with nursing care, compliant with medications. Patient is A/O X 3 to person, place. Tramadol 50 mg given at 16:03 for jaw pain, rated 10 on the scale of 10, effective. Emotional support provided. Fall and safety precautions implemented.
[2022-04-26 20:01] VITALS: BP 115/52
[2022-04-26] MEDS: diphenhydrAMINE 50 MG CAPSULE PO SCH (21:11)
[2022-04-26] MEDS: MELATONIN 3 MG TABLET PO SCH (21:11)
[2022-04-26] MEDS: LORAZEPAM 1 MG TABLET PO PRN (21:57)
--- NOTE | 2022-04-27 03:27 | NUR ---
GPS NOTES: Patient remains A&0x3, ambulatory and able to care for self. Still exhibiting anxious behavior as evidence by constant asking for re-assurance. Patient is able to make her needs known. She is quiet, calm and pleasant towards staff and peers. She is med compliant. All her needs are met and attended. Close monitoring observed, all safety strategies in placed.
[2022-04-27 07:30] VITALS: BP 113/62
[2022-04-27] MEDS: ESCITALOPRAM OXALATE 10 MG TABLET PO SCH (08:39)
[2022-04-27] MEDS: ASPIRIN 81 MG TAB.CHEW PO SCH (08:39)
[2022-04-27] MEDS: GABAPENTIN 300 MG CAPSULE PO SCH ×4 (08:39→21:07)
[2022-04-27] MEDS: ASCORBIC ACID 500 MG TABLET PO SCH (08:39)
[2022-04-27] MEDS: FAMOTIDINE 20 MG TABLET PO SCH (08:39)
[2022-04-27] MEDS: CHOLECALCIFEROL 1,000 UNIT TABLET PO SCH (08:39)
[2022-04-27] MEDS: ENSURE ENLIVE (VAN) 240 ML LIQUID PO SCH (08:40)
[2022-04-27] MEDS: LORAZEPAM 1 MG TABLET PO PRN ×2 (12:49→21:06)
--- NOTE | 2022-04-27 15:21 | NUR ---
Received patient sleeping in her room. Pt. is A/O X 3 to person, place, situation. Patient is calm, cooperative, isolative most of the time, depressed. Patient is given Ativan 1 mg at 12:49 for anxiety, effective. Patient requires minimal assistance with ADL. Patient is medication compliant. Emotional support provided. Fall and safety precautions implemented.
[2022-04-27 16:00] VITALS: BP 123/66
[2022-04-27 20:06] VITALS: BP 140/68
[2022-04-27] MEDS: MAGNESIUM HYDROXIDE 30 ML LIQUID UDC PO PRN (20:36)
[2022-04-27] MEDS: diphenhydrAMINE 50 MG CAPSULE PO SCH (21:07)
[2022-04-27] MEDS: MELATONIN 3 MG TABLET PO SCH (21:07)
--- NOTE | 2022-04-28 05:53 | NUR ---
GPS: SHIFT NOTE:RECEIVED PT ALERT AND STANDING AT NURSES STATION CALM AND COOPERATIVE. PT REQUESTED ATIVAN FOR SLEEP INSTEAD OF AMBIEN TO BE GIVEN AT 2145. PT IS INDEPENDENT WITH ADL. EMOTIONAL PROVIDED PRN. PT HAD NO ADVERSE REACTION FROM MEDICATION TAKEN DURING THE SHIFT.
[2022-04-28 07:30] VITALS: BP 111/56
[2022-04-28] MEDS: ESCITALOPRAM OXALATE 10 MG TABLET PO SCH (08:19)
[2022-04-28] MEDS: ASPIRIN 81 MG TAB.CHEW PO SCH (08:19)
[2022-04-28] MEDS: ENSURE ENLIVE (VAN) 240 ML LIQUID PO SCH (08:19)
[2022-04-28] MEDS: FAMOTIDINE 20 MG TABLET PO SCH (08:20)
[2022-04-28] MEDS: GABAPENTIN 300 MG CAPSULE PO SCH ×2 (08:20→12:11)
[2022-04-28] MEDS: CHOLECALCIFEROL 1,000 UNIT TABLET PO SCH (08:20)
[2022-04-28] MEDS: ASCORBIC ACID 500 MG TABLET PO SCH (08:20)
--- NOTE | 2022-04-28 10:05 | NUR ---
LASHAUN Discharge Note: Pt [place] be [place] [address] [place] [address] via pts daughter Will private vehicle transportation to home at 1PM. SW spoke with Quinn ([phone]) who is aware and agreeable with the discharge plan. Pt is aware and agreeable with discharge plan. Pt is alert and oriented x4, is unable to plan for self-care at this time. However, pt is willing to accept care at home by her brother, Micheal ([phone]). Pt denies any suicidal or homicidal ideation. Pt will follow-up with her outpatient Psychiatrist and Psychologist who will be assigned at [facility] located at [address] [place] [phone] via teletherapy ([phone]) after pts consultation on May 04 at 1:30PM confirmed by [place]. PHARMACY: [facility] [address] [place] [address] ([phone]).
[2022-04-28] MEDS: TRAMADOL HCL 50 MG TABLET PO PRN (11:21)
--- NOTE | 2022-04-28 12:59 | NUR ---
Received orders to discharge this patient home located at [id number] [place] [phone] via pts daughter Will private vehicle transportation to home at 1PM. Patient is agreeable with discharge plans, and signed all discharge documentation. Patient denies SI/HI AH/VH, SOB, pain or any discomfort. All belongings and medication were returned to patient. Patient left unit at 13:00. Emotional support provided. Fall and safety precautions implemented.
== END 2022-04-28 13:00 | disposition home or self-care (01) | DRG 885 ==
LOC: ER 18:41 → GPS 20:11
PROVIDERS: ADMIT Psychiatry & Neurology Psychiatry; ATTEND Internal Medicine
DX: F33.2 Major depressive disorder, recurrent severe without psychotic features (principal); E43 Unspecified severe protein-calorie malnutrition; R45.851 Suicidal ideations; Z68.1 Body mass index [BMI] 19.9 or less, adult; E78.5 Hyperlipidemia, unspecified; F41.0 Panic disorder [episodic paroxysmal anxiety]; G50.0 Trigeminal neuralgia; G89.4 Chronic pain syndrome; M79.7 Fibromyalgia; R62.7 Adult failure to thrive; Z79.899 Other long term (current) drug therapy; F41.1 Generalized anxiety disorder; F60.9 Personality disorder, unspecified; Z20.822 Contact with and (suspected) exposure to COVID-19
CPT/HCPCS: 36415; 83735; 84100; 84443; 85025; 93005; A4663; Q0163